=== PATIENT | male | born 1955 | race African-American/Black ===

== ENCOUNTER 2017-07-30 19:06 | Emergency (ER) | payer SELFPAY ==
[~2017-07-30] VITALS: Ht 188 cm; Wt 86.2 kg
[2017-07-30 19:45] VITALS: BP 159/92
[2017-07-30] MEDS: Excedrin Migraine tab ORAL ONE (19:55)
--- NOTE | 2017-07-30 20:05 | Emergency Room Report ---
History of Present Illness General Chief Complaint: Headache Source: Patient Present Illness HPI 62 yo male patient presents to ER complaining of NOBLE x2 weeks. Patient reports NOBLE all over feels like a "vice on his head". Reports taking Tylenol for relief of symptoms, Tylenol "usually helps symptoms. " Patient reports to ER due to duration of symptoms. Reports no vision loss. Reports seeing "triangles" in his peripheral field of vision. Denies curtain coming down over vision, denies pdaron. Denies double vision. Denies eye pain, denies pain with eye movement. Reports wears glasses. Denies hearing loss, vertigo. Reports nausea. Denies vomiting. Denies fever, neck pain, SOB, abdominal pain. Denies hx of NOBLE. Denies hx of cardiac disease, HTN, arrhythmia. Patient reports hx of recent stress at work and at home. Allergies: Coded Allergies: No Known Allergies (Unverified , 07/30/17) Patient History Past Medical History: see triage record Reviewed Nursing Documentation: PMH: Agreed, PSxH: Agreed Nursing Documentation-PMH Past Medical History: No Stated History Review of Systems All Other Systems: negative except mentioned in HPI Physical Exam Vital Signs Date Time Temp Pulse Resp B/P (MAP) Pulse Ox O2 Delivery O2 Flow Rate FiO2 07/30/17 19:18 98.6 67 16 159/92 98 Room Air 98.6 Sp02 EP Interpretation: reviewed, normal General Appearance: well appearing, no apparent distress, alert, GCS 15, non- toxic Head: normocephalic, atraumatic Eyes: bilateral eye normal inspection, bilateral eye PERRL, bilateral eye EOMI ENT: hearing grossly normal, normal pharynx, no angioedema, normal voice, TMs + canals normal, uvula midline, moist mucus membranes Neck: full range of motion, no bony tend Respiratory: lungs clear, normal breath sounds, no rhonchi, no respiratory distress, no accessory muscle use, no wheezing, speaking full sentences Cardiovascular #1: regular rate, rhythm, no edema Cardiovascular #2: 2+ radial (R), 2+ radial (L) Gastrointestinal: non tender, soft, no mass, non-distended, no guarding, no rebound Genitourinary: no CVA tenderness Musculoskeletal: back normal, digits/nails normal, gait/station normal, normal range of motion, non-tender Neurologic: alert, oriented x3, responsive, group contract analyst III-XII nml as tested, motor strength/tone normal, sensory intact, cerebellar normal, normal gait, speech normal Psychiatric: mood/affect normal Skin: no rash Lymphatic: no adenopathy Medical Decision Making PA Attestation Dr. Munoz is my supervising Physician whom patient management has been discussed with. Diagnostic Impression: Primary Impression: Headache ER Course Pt presents to ED c/o headache. DDX considered but are not limited to migraine, cluster NOBLE, tension NOBLE, meningitis, ICH, meningitis. Low suspicion for ICH but because new onset of NOBLE after 51 yo, will CT head to rule out intracranial pathology. No fever, no neck pain, nontoxic appearing, low suspicion for meningitis. VITAL SIGNS are WNL, patient is afebrile VA WNL, see nurses note. Followup with explosive operator supervisor for checkup. Ordered pain medication and CT head. ER COURSE - Excedrin Migraine - Zofran CT head negative for acute process. Discuss results with patient. Informed patient NOBLE may be related to stress or may be migraine. Results provided to patient. Instructed patient to followup with PCP to discuss referral to neuro. Patient reports pain improved since arrival to ER. Patient is AOx3, neurologically intact, nontoxic appearing, and ambulatory. DISCHARGE: -Rx provided Tylenol -Rx provided for Zofran for nausea symptoms. At this time pt is stable for d/c to home. Patient is resting comfortably, in no acute distress, nontoxic appearing, talking and smiling. Will provide with patient care instructions and any necessary prescriptions. Patient to take medication as instructed. Care plan and follow-up instructions provided. Patient questions asked and answered. Patient instructed to follow-up with primary care provider in the next 3 days and discuss further referral with PCP to neurologist. ER precautions given. Patient instructed to return to ER immediately for any new or worsening of symptoms including but not limited to fever, neck stiffness , vision changes, and neurological symptoms. CT/MRI/US Diagnostic Results CT/MRI/US Diagnostic Results : Imaging Test Ordered: CT head Impression [facility] No ICH, mass effect or edema. No evidence of acute cortical stroke. Visualized sinuses and mastoid air cells are clear. Last Vital Signs Date Time Temp Pulse Resp B/P (MAP) Pulse Ox O2 Delivery O2 Flow Rate FiO2 07/30/17 19:55 98.6 07/30/17 19:18 67 16 159/92 98 Room Air Disposition: HOME, SELF-CARE Condition: Stable Scripts Ondansetron Odt* (ZOFRAN ODT*) 4 Mg Tab.rapdis 4 MG ORAL Q6H Y for Nausea & Vomiting, #8 TAB Prov: Sreekanth Hancock 07/30/17 Acetaminophen* (TYLENOL EXTRA STRENGTH*) 500 Mg Tablet 500 MG ORAL Q8H Y for Prn Headache/Temp > 101, #30 TAB 0 Refills Prov: Sreekanth Hancock 07/30/17 Patient Instructions: General Headache Without Cause, Tension Headache, Easy-to -Read Additional Instructions: Followup with primary care provider in 3 -5 days. Discuss referral to neuro. Followup with explosive operator supervisor. Take medications as directed. Patient questions asked and answered. ER precautions given, patient instructed to return to ER immediately for any new or worsening of symptoms. Sreekanth Hancock Jul 30, 2017 20:05
[2017-07-30] MEDS ORDERED: TYLENOL EXTRA500 MG ORAL (20:08)
[2017-07-30] MEDS ORDERED: ZOFRAN ODT4 MG ORAL (21:54)
[2017-07-30 22:00] VITALS: BP 159/92
--- NOTE | 2017-07-31 08:42 | Diagnostic Imaging Report ---
Indication: Pain Technique: Continuous helical CT scanning of the head was performed without intravenous contrast material. Axial and coronal 5 mm sections were generated. Radiation dose was minimized using automated exposure control Dose: Total Dose Length Product - DLP 1442.[address] Dose Index - CTDIvol(s) 70.38 mGy. Comparison: none Findings: The ventricular system is normal in size and configuration. There is no shift of midline structures. No abnormal extra-axial fluid collections are noted. There is no evidence of intracerebral bleeding. No other abnormal high or low density areas are noted within the brain. Intact calvarium. Visualized orbits and sinuses are unremarkable. Impression: Normal CT scan of the head without contrast material. This agrees with the preliminary interpretation provided overnight by [facility]erad[facility] service. The CT scanner at [facility] is accredited by the [employer] and the scans are performed using protocols designed to limit radiation exposure to as low as reasonably achievable to attain images of sufficient resolution adequate for diagnostic evaluation.
== END 2017-07-30 22:00 | disposition home or self-care (01) ==
LOC: EMR 19:38
DX: R51 Headache (principal)
CPT/HCPCS: 70450; 99284

== ENCOUNTER 2018-08-06 16:23 | Emergency (ER) | payer SELFPAY ==
[~2018-08-06] VITALS: Ht 188 cm; Wt 88.9 kg
[~2018-08-06 16:23] MED LIST: TYLENOL EXTRA500 MG ORAL; ZOFRAN ODT4 MG ORAL
[2018-08-06] MEDS ORDERED: NKM (16:50)
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
[2018-08-06 16:57] VITALS: BP 149/75
[2018-08-06] MEDS ORDERED: HYDROcodone/Acetamin 5/325 tab ORAL ONE (17:15)
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
[2018-08-06] MEDS ORDERED: IBUPROFEN600 MG ORAL (18:33)
[2018-08-06] MEDS ORDERED: NORCO 5-325 TA1 EACH ORAL (18:33)
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
[2018-08-06 18:40] VITALS: BP 149/75
--- NOTE | 2018-08-06 18:40 | NUR ---
ER DISCHARGE NOTE: Patient is cleared to be discharged per ERMD, pt is aox4, on room air, with stable vital signs. pt was given dc and prescription instructions, pt was able to verbalize understanding, pt id band removed without complications. pt is able to ambulate with steady gait. pt took all belongings.
--- NOTE | 2018-08-06 19:30 | NUR ---
ED Nurse Note: left voicemail in patients number on contact list regarding change of diagnosis, patient will come back
== END 2018-08-06 18:41 | disposition home or self-care (01) ==
LOC: EMR 17:30
DX: S20.212A Contusion of left front wall of thorax, initial encounter (principal); S42.112A Displaced fracture of body of scapula, left shoulder, initial encounter for closed fracture; V18.9XXA Unspecified pedal cyclist injured in noncollision transport accident in traffic accident, initial encounter; Y93.55 Activity, bike riding; Y92.9 Unspecified place or not applicable
CPT/HCPCS: 99283